=== PATIENT | female | born 1960 | race Caucasian/White ===

== ENCOUNTER 2016-12-06 20:07 | Emergency (ER) | payer OTHER ==
--- NOTE | 2016-12-06 20:52 | DIAGNOSTIC IMAGING REPORT ---
PROCEDURE: XR ANKLE 3 OR 4 VIEWS - RIGHT INDICATION: TRAUMA/INJURY TECHNIQUE: Four views. COMPARISON: None. FINDINGS: 7 mm a avulsion fracture adjacent to the superior aspect of the talus anteriorly suggestive of acute avulsion fracture. Plantar calcaneal spur. Normal ankle mortise. Soft tissue calcifications laterally. IMPRESSION: 1. Avulsion fracture of the superior aspect of the talus anteriorly, probably acute. Correlate clinically 2. Calcaneal spur 3. Results discussed with Esther Diaz, PAC
--- NOTE | 2016-12-06 21:01 | ED CLINICAL REPORT ---
Clinical Report - Physicians/Mid Levels [address] [address] [place] [address] 12/06/2016 20:10 Patient: JUSTINE SHEPHERD Time Seen: 20:15 Dec 06 2016. Arrived- By private vehicle. Historian- patient. HISTORY OF PRESENT ILLNESS Chief Complaint: Injury to the right ankle. The injury happened just prior to arrival. Fell. She sustained a direct blow. Occurred at home. Patient is experiencing moderate pain. Patient denies injury to the head or neck. (Patient fell down a wooden stair prior to arrival. Reports inverting her right ankle, and following with weight onto her left knee. Has been able to ambulate in the left lower extremity since incident. Patient). REVIEW OF SYSTEMS All systems otherwise negative, except as recorded above. PAST HISTORY The patient has not had a prior injury to the same area. Tetanus immunization status is up-to-date. Problems: Morbid obesity. Insomnia. Additional Surgeries: Bariatric Surgery. Breast Augmentation. Cholecystectomy. . Knee Surgery. Neck Surgery. Medications: Hydrocodone-Acetaminophen Oral. Ambien Oral. Allergies: No Known Drug Allergy. 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 No drug use. ADDITIONAL NOTES The nursing notes have been reviewed. PHYSICAL EXAM Vital Signs: 12/06/2016 20:30 BP: 147/70. HR: 71. RR: 16. O2 saturation: 100%. Temp: 97.9 F. Appearance: Alert. Head: Head atraumatic. CVS: Normal heart rate and rhythm. Decreased pulses. Respiratory: No respiratory distress. Breath sounds normal. Chest nontender. Skin: (left knee abrasion,). Extremities: Right posterior ankle. No tenderness or laceration. Right lateral ankle: tenderness and swelling. No ecchymosis or foreign body. Right anterior ankle: mild tenderness and swelling. No puncture wound. No deformity consistent with a fracture or dislocation. Right medial ankle. No tenderness or swelling. Base of the right 5th metatarsal. No tenderness or laceration. Right heel. No tenderness. ( left knee abarsion, no lac, mild swelling, full rom, non tender. no thigh/ tib/fib tendernss/ deformity of left aspect noted). Gait: Limping gait. Neuro, Vascular and Tendons: Vascular status intact. Motor intact. LABS, X-RAYS, AND EKG Rt Ankle X-ray: (IMPRESSION: 1. Avulsion fracture of the superior aspect of the talus anteriorly, probably acute. Correlate clinically 2. Calcaneal spur 3. Results discussed with Esther Diaz PAC Electronically Final signed by:Festus Davis MD 12/06/2016 8:52:15 PM). PROGRESS AND PROCEDURES PROCEDURES (R. ankle boot, ns intact post application). Course of Care: CARIN note: ambien/vicodin reviewed patient in the emergency department is very stable. Small left knee abrasion otherwise full range of motion of the left extremity. Full range of motion of the right extremity, her pain anteriorly and laterally of the ankle. Patient with no signs of laceration. No signs of ankle instability. Patient to follow up outpatient. NO injury to r.knee/ calcaneous. Mechanical trip/ fall down stair. 12/06/2016 21:17 BP: 125/72. HR: 70. RR: 18. O2 saturation: 98%. Patient is stable. Symptoms better. Patient/family counseled. Disposition: Discharged. Condition: good. CLINICAL IMPRESSION Single superficial abrasion to the left knee. Sprain of the tibiofibular ligament of the right ankle. Fracture of the right talus. Fall from stairs. INSTRUCTIONS Apply ice. Wear boot orthosis. Protect wound and keep wound area clean. Apply bacitracin twice daily. Elevate affected areas above chest level. (elevate and ICE your leg Follow up with podiatry/ ortho). Your Current Medications: CONTINUE TAKING THE FOLLOWING MEDICATIONS: Ambien Oral. Hydrocodone-Acetaminophen Oral. OTC Medications: Take OTC medications according to label instructions. Available over the counter. Acetaminophen (available over the counter): take according to label instructions. Motrin IB 200 mg (available over the counter): take 4 orally every 8 hours for 5 days, as needed for pain or swelling Follow-up with: [facility], , [address], [facility], [address] Follow up in five days. Call for the next available appointment. Follow-up with: Kemar Nunes DPM, Podiatry, , [facility], [address] [place] [address], [address], [place], [facility] Follow up. Call for the next available appointment. (Electronically signed by Lou Diaz P.A.-C 12/06/2016 21:26)
--- NOTE | 2016-12-06 21:01 | ED NURSING NOTES ---
Clinical Report - Nurses [facility] [place] [address] 12/06/2016 20:10 Patient: JUSTINE SHEPHERD TRIAGE Triage time 2019. Acuity: LEVEL 4. Chief Complaint: INJURY TO LEFT KNEE and RIGHT ANKLE. Alert. No acute distress. (anxious). --20:34 Felecia Parker 20:30 12/06/16. BP: 147/70. HR: 71. RR: 16. O2 saturation: 100%. Temp: 97.9 F. Pain level now 8/10. --20:34 Felecia Parker. Weight: 104.3 kg. Height/Length: 64 inches. BMI: 39.5. --20:30 Felecia Parker. Medications Ambien Oral. --20:31 Felecia Parekr Hydrocodone-Acetaminophen Oral. --20:44 Felecia Parker. Medication/allergy information source: the patient. --20:34 Felecia Parker. Allergies No Known Drug Allergy. --20:31 Felecia Parker. History Arrived by private vehicle. Historian: patient. Accompanied by family. This occurred just prior to arrival. Mechanism of injury: fell. ( Pt fell down 2 stairs, denies hitting head, c/o right ankle pain from rolling it, left knee pain with abrasion, left zarate pain with noted bruising). 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 SOCIAL HX: Never smoker. Regular alcohol use; consumes two glasses of wine daily. NUTRITIONAL RISK ASSESSMENT: The nutritional risk assessment revealed no deficiencies. FUNCTIONAL ASSESSMENT: Functional assessment: no impairments noted. LEARNING NEEDS ASSESSMENT: The learning needs assessment revealed no barriers. SKIN INTEGRITY ASSESSMENT: Skin integrity risk assessment completed. No skin integrity risk identified. --20:34 Felecia Parker. PROBLEMS: Morbid obesity. Insomnia. --20:32 Felecia Parker. ADDITIONAL SURGERIES: Bariatric Surgery. Breast Augmentation. Cholecystectomy. . Knee Surgery. Neck Surgery. --20:32 Felecia Parker. Interventions ID band on patient. To treatment room. --20:34 Felecia Parker. PHYSICAL ASSESSMENT To room via wheelchair. GENERAL / NEURO / PSYCH: Oriented X 4. Alert. Appears anxious and in distress. EXTREMITIES: Capillary refill is less than 2 seconds in the extremities. Extremity pulses are within normal limits. Pain with weight bearing. Right ankle: tenderness and swelling. Limited ROM secondary to pain. Left knee: tenderness, erythema and large and superficial abrasion. Limited ROM secondary to pain. Left leg: tenderness, swelling and ecchymosis of the anterior aspect of lower leg. Limited weight bearing secondary to pain. SKIN: Skin intact. Skin is warm and dry. --20:35 Felecia Parker. NURSING PROGRESS NOTES Cold pack applied. Reassurance given. Call light placed in reach. Bed placed in lowest position. Brakes of bed on. Patient ready for evaluation- chart flagged. --20:35 Felecia Parker 20:36 12/06/2016 Hydrocodone-APAP (Hydrocodone-Acetaminophen) PO 5/325 mg Tablets 1 tab given. Allergies verified, confirmed 5 rights and sedative warning given to the patient. --20:36 Felecia Parker ( CARIN report on pt, shows the Ambien but also fills fo Hydrocodone 7.5 with 540 qty, pt was asked about this, she sts she forgot, when asked why she takes them she sts for hip pain, when asked what is wrong with her hip she sts she used to get cortisone shots in it from a low back problem. This RN informed the pt and her spouse that it is important for her to disclose this rx, that it doesn't come across good when it is found only by e report, pt sts understanding, pt then medicated for pain). --20:46 Felecia Parker ( Wound care and splint on via assistant golf coach). --21:19 Felecia Parker. DISPOSITION / DISCHARGE Departure time: 2114. Condition at departure: unchanged and stable. No learning barriers present. Discharge instructions provided and reviewed with the patient and spouse. Reviewed medication(s). Patient and spouse verbalized understanding. Written instructions provided in Danish. The patient was discharged by the physician physician assistant surgery. She was discharged home and accompanied by spouse. She left the Emergency Department ambulatory and via private vehicle. Spouse driving. --21:18 Felecia Parker 21:17 12/06/16. BP: 125/72. HR: 70. RR: 18. O2 saturation: 98%. Pain level now 03/05. --21:18 Felecia Parker. Locked/Released at 12/06/2016 21:19 by Felecia Parker,
--- NOTE | 2016-12-06 21:01 | ED CLINICAL REPORT ---
Clinical Report - Physicians/Mid Levels [address] [address] [place] [address] 12/06/2016 20:10 Patient: JUSTINE SHEPHERD Time Seen: 20:15 Dec 06 2016. Arrived- By private vehicle. Historian- patient. HISTORY OF PRESENT ILLNESS Chief Complaint: Injury to the right ankle. The injury happened just prior to arrival. Fell. She sustained a direct blow. Occurred at home. Patient is experiencing moderate pain. Patient denies injury to the head or neck. (Patient fell down a wooden stair prior to arrival. Reports inverting her right ankle, and following with weight onto her left knee. Has been able to ambulate in the left lower extremity since incident. Patient). REVIEW OF SYSTEMS All systems otherwise negative, except as recorded above. PAST HISTORY The patient has not had a prior injury to the same area. Tetanus immunization status is up-to-date. Problems: Morbid obesity. Insomnia. Additional Surgeries: Bariatric Surgery. Breast Augmentation. Cholecystectomy. . Knee Surgery. Neck Surgery. Medications: Hydrocodone-Acetaminophen Oral. Ambien Oral. Allergies: No Known Drug Allergy. 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 No drug use. ADDITIONAL NOTES The nursing notes have been reviewed. PHYSICAL EXAM Vital Signs: 12/06/2016 20:30 BP: 147/70. HR: 71. RR: 16. O2 saturation: 100%. Temp: 97.9 F. Appearance: Alert. Head: Head atraumatic. CVS: Normal heart rate and rhythm. Decreased pulses. Respiratory: No respiratory distress. Breath sounds normal. Chest nontender. Skin: (left knee abrasion,). Extremities: Right posterior ankle. No tenderness or laceration. Right lateral ankle: tenderness and swelling. No ecchymosis or foreign body. Right anterior ankle: mild tenderness and swelling. No puncture wound. No deformity consistent with a fracture or dislocation. Right medial ankle. No tenderness or swelling. Base of the right 5th metatarsal. No tenderness or laceration. Right heel. No tenderness. ( left knee abarsion, no lac, mild swelling, full rom, non tender. no thigh/ tib/fib tendernss/ deformity of left aspect noted). Gait: Limping gait. Neuro, Vascular and Tendons: Vascular status intact. Motor intact. LABS, X-RAYS, AND EKG Rt Ankle X-ray: (IMPRESSION: 1. Avulsion fracture of the superior aspect of the talus anteriorly, probably acute. Correlate clinically 2. Calcaneal spur 3. Results discussed with Esther Diaz PAC Electronically Final signed by:Festus Davis MD 12/06/2016 8:52:15 PM). PROGRESS AND PROCEDURES PROCEDURES (R. ankle boot, ns intact post application). Course of Care: CARIN note: ambien/vicodin reviewed patient in the emergency department is very stable. Small left knee abrasion otherwise full range of motion of the left extremity. Full range of motion of the right extremity, her pain anteriorly and laterally of the ankle. Patient with no signs of laceration. No signs of ankle instability. Patient to follow up outpatient. NO injury to r.knee/ calcaneous. Mechanical trip/ fall down stair. 12/06/2016 21:17 BP: 125/72. HR: 70. RR: 18. O2 saturation: 98%. Patient is stable. Symptoms better. Patient/family counseled. Disposition: Discharged. Condition: good. CLINICAL IMPRESSION Single superficial abrasion to the left knee. Sprain of the tibiofibular ligament of the right ankle. Fracture of the right talus. Fall from stairs. INSTRUCTIONS Apply ice. Wear boot orthosis. Protect wound and keep wound area clean. Apply bacitracin twice daily. Elevate affected areas above chest level. (elevate and ICE your leg Follow up with podiatry/ ortho). Your Current Medications: CONTINUE TAKING THE FOLLOWING MEDICATIONS: Ambien Oral. Hydrocodone-Acetaminophen Oral. OTC Medications: Take OTC medications according to label instructions. Available over the counter. Acetaminophen (available over the counter): take according to label instructions. Motrin IB 200 mg (available over the counter): take 4 orally every 8 hours for 5 days, as needed for pain or swelling Follow-up with: [facility], , [address], [facility], [address] Follow up in five days. Call for the next available appointment. Follow-up with: Kemar Nunes DPM, Podiatry, , [facility], [address] [place] [address], [address], [place], [facility] Follow up. Call for the next available appointment. (Electronically signed by Lou Diaz P.A.-C 12/06/2016 21:26)
--- NOTE | 2016-12-06 21:01 | ED ORDER SUMMARY ---
..... Patient: JUSTINE SHEPHERD OrderSheet [facility] VisitID: [id number] [address] [place] [address] 56y, F Registration Date/Time: 12/06/2016 ORDER SHEET Weight: 104.3 kg Allergies: No Known Drug Allergy GENERAL ORDERS: Ankle 3 or 4V Right Urgent (20:28 12/06/2016 EKoroleva P.A.-C) (Ack 20:31 Alisha ER Drill Press Tender) (20:41 RFay) Splint (LE) (Right) (BIG BOOT to knee) (20:53 12/06/2016 EKoroleva P.A.-C) (21:18 EBonham) Wound Irrigation (LEFT KNEE, dressing with bacitracin, non adhesive) (20:53 12/06/2016 EKoroleva P.A.-C) (21:18 EBonham) MEDICATION ORDERS: Hydrocodone-APAP PO 5/325 mg (NOW, HIGH ALERT MEDICATION) (20:29 12/06/2016 EKoroleva P.A.-C) (20:36 EBonham) IV FLUIDS: ORDER SHEET NOTES: [Electronically signed by Felecia Parker (21:19 12/06/2016)] [Electronically signed by Lou Diaz P.A.-C (21:26 12/06/2016)] [Electronically locked/signed by Felecia Parker (21:19 12/06/2016)]
--- NOTE | 2016-12-06 21:01 | ED ORDER SUMMARY ---
..... Patient: JUSTINE SHEPHERD OrderSheet [facility] VisitID: [id number] [address] [place] [address] 56y, F Registration Date/Time: 12/06/2016 ORDER SHEET Weight: 104.3 kg Allergies: No Known Drug Allergy GENERAL ORDERS: Ankle 3 or 4V Right Urgent (20:28 12/06/2016 EKoroleva P.A.-C) (Ack 20:31 Alisha ER System Support Administrator) (20:41 RFay) Splint (LE) (Right) (BIG BOOT to knee) (20:53 12/06/2016 EKoroleva P.A.-C) (21:18 EBonham) Wound Irrigation (LEFT KNEE, dressing with bacitracin, non adhesive) (20:53 12/06/2016 EKoroleva P.A.-C) (21:18 EBonham) MEDICATION ORDERS: Hydrocodone-APAP PO 5/325 mg (NOW, HIGH ALERT MEDICATION) (20:29 12/06/2016 EKoroleva P.A.-C) (20:36 EBonham) IV FLUIDS: ORDER SHEET NOTES: [Electronically signed by Felecia Parker (21:19 12/06/2016)] [Electronically signed by Lou Diaz P.A.-C (21:26 12/06/2016)] [Electronically locked/signed by Felecia Parker (21:19 12/06/2016)]
--- NOTE | 2016-12-06 21:01 | ED NURSING NOTES ---
Clinical Report - Nurses [facility] [place] [address] 12/06/2016 20:10 Patient: JUSTINE SHEPHERD TRIAGE Triage time 2019. Acuity: LEVEL 4. Chief Complaint: INJURY TO LEFT KNEE and RIGHT ANKLE. Alert. No acute distress. (anxious). --20:34 Felecia Parker 20:30 12/06/16. BP: 147/70. HR: 71. RR: 16. O2 saturation: 100%. Temp: 97.9 F. Pain level now 8/10. --20:34 Felecia Parker. Weight: 104.3 kg. Height/Length: 64 inches. BMI: 39.5. --20:30 Felecia Parker. Medications Ambien Oral. --20:31 Felecia Parker Hydrocodone-Acetaminophen Oral. --20:44 Felecia Parker. Medication/allergy information source: the patient. --20:34 Felecia Parker. Allergies No Known Drug Allergy. --20:31 Felecia Parker. History Arrived by private vehicle. Historian: patient. Accompanied by family. This occurred just prior to arrival. Mechanism of injury: fell. ( Pt fell down 2 stairs, denies hitting head, c/o right ankle pain from rolling it, left knee pain with abrasion, left zarate pain with noted bruising). 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 SOCIAL HX: Never smoker. Regular alcohol use; consumes two glasses of wine daily. NUTRITIONAL RISK ASSESSMENT: The nutritional risk assessment revealed no deficiencies. FUNCTIONAL ASSESSMENT: Functional assessment: no impairments noted. LEARNING NEEDS ASSESSMENT: The learning needs assessment revealed no barriers. SKIN INTEGRITY ASSESSMENT: Skin integrity risk assessment completed. No skin integrity risk identified. --20:34 Felecia Parker. PROBLEMS: Morbid obesity. Insomnia. --20:32 Felecia Parker. ADDITIONAL SURGERIES: Bariatric Surgery. Breast Augmentation. Cholecystectomy. . Knee Surgery. Neck Surgery. --20:32 Felecia Parker. Interventions ID band on patient. To treatment room. --20:34 Felecia Parker. PHYSICAL ASSESSMENT To room via wheelchair. GENERAL / NEURO / PSYCH: Oriented X 4. Alert. Appears anxious and in distress. EXTREMITIES: Capillary refill is less than 2 seconds in the extremities. Extremity pulses are within normal limits. Pain with weight bearing. Right ankle: tenderness and swelling. Limited ROM secondary to pain. Left knee: tenderness, erythema and large and superficial abrasion. Limited ROM secondary to pain. Left leg: tenderness, swelling and ecchymosis of the anterior aspect of lower leg. Limited weight bearing secondary to pain. SKIN: Skin intact. Skin is warm and dry. --20:35 Felecia Parker. NURSING PROGRESS NOTES Cold pack applied. Reassurance given. Call light placed in reach. Bed placed in lowest position. Brakes of bed on. Patient ready for evaluation- chart flagged. --20:35 Felecia Parker 20:36 12/06/2016 Hydrocodone-APAP (Hydrocodone-Acetaminophen) PO 5/325 mg Tablets 1 tab given. Allergies verified, confirmed 5 rights and sedative warning given to the patient. --20:36 Felecia Parker ( CARIN report on pt, shows the Ambien but also fills fo Hydrocodone 7.5 with 540 qty, pt was asked about this, she sts she forgot, when asked why she takes them she sts for hip pain, when asked what is wrong with her hip she sts she used to get cortisone shots in it from a low back problem. This RN informed the pt and her spouse that it is important for her to disclose this rx, that it doesn't come across good when it is found only by e report, pt sts understanding, pt then medicated for pain). --20:46 Felecia Parker ( Wound care and splint on via curtain hemmer automatic). --21:19 Felecia Parker. DISPOSITION / DISCHARGE Departure time: 2114. Condition at departure: unchanged and stable. No learning barriers present. Discharge instructions provided and reviewed with the patient and spouse. Reviewed medication(s). Patient and spouse verbalized understanding. Written instructions provided in Kyrgyz. The patient was discharged by the physician psychologist research assistant. She was discharged home and accompanied by spouse. She left the Emergency Department ambulatory and via private vehicle. Spouse driving. --21:18 Felecia Parker 21:17 12/06/16. BP: 125/72. HR: 70. RR: 18. O2 saturation: 98%. Pain level now 03/05. --21:18 Felecia Parker. Locked/Released at 12/06/2016 21:19 by Felecia Parker,
--- NOTE | 2016-12-06 21:26 | ED DISCHARGE INSTRUCTIONS ---
Patient: JUSTINE SHEPHERD General Instructions [facility] VisitID: [id number] [address] [place] [address] 56y, F Registration Date/Time: 12/06/2016 Single superficial abrasion to the left knee. Sprain of the tibiofibular ligament of the right ankle. Fracture of the right talus. Fall from stairs. INSTRUCTIONS Apply ice. Wear boot orthosis. Protect wound and keep wound area clean. Apply bacitracin twice daily. Elevate affected areas above chest level. (elevate and ICE your leg Follow up with podiatry/ ortho). Your Current Medications: CONTINUE TAKING THE FOLLOWING MEDICATIONS: Ambien Oral. Hydrocodone-Acetaminophen Oral. OTC Medications: Take OTC medications according to label instructions. Available over the counter. Acetaminophen (available over the counter): take according to label instructions. Motrin IB 200 mg (available over the counter): take 4 orally every 8 hours for 5 days, as needed for pain or swelling Follow-up with: [facility], , [address], [place] [address] Follow up in five days. Call for the next available appointment. Follow-up with: Kemar Nunes DPM, Podiatry, , [facility], [address] [place] [address], [address], [place] [address] Follow up. Call for the next available appointment. ADDITIONAL INFORMATION Mechanical Fall You have had a fall today. It appears that the cause is mechanical. That means that you slipped, tripped or lost your balance. If your fall had been due to fainting or a seizure, further tests would be required. Home Care: Rest today and resume your normal activities when you are feeling back to normal. If you were injured during the fall, follow the advice from your doctor regarding care of your injury. You may use acetaminophen (Tylenol) or ibuprofen (Motrin, Advil) to control pain, unless another pain medicine was prescribed. [NOTE: If you have chronic liver or kidney disease or ever had a stomach ulcer or GI bleeding, talk with your doctor before using these medicines.] Fall Prevention: Was there anything that caused your fall that can be fixed, removed, or replaced? Make your home safe by keeping walkways clear of objects you may trip over. Use non-slip pads under rugs. Do not walk in poorly lit areas. Do not stand on chairs or wobbly ladders. Use caution when reaching overhead or looking upward. This position can cause a loss of balance. Be sure your shoes fit properly, have non-slip bottoms and are in good condition. Be cautious when going up and down curbs, and walking on uneven sidewalks. If your balance is poor, consider using a cane or walker. Stay as active as you can. Balance, flexibility, strength, and endurance all come from exercise. They all play a role in preventing falls. Follow Up with your doctor or as advised by our staff. Get Prompt Medical Attention if any of the following occur: Repeated mechanical falls, or unexplained falls Dizziness, fainting or seizure Severe headache Chest pain or shortness of breath Palpitations (very rapid or very slow or irregular heartbeat) Blood in vomit, stools (black or red color) Weakness of an arm or leg or one side of the face Difficulty with speech or vision Abrasions Abrasions are skin scrapes. Their treatment depends on how large and deep the abrasion is. Home Care: If you were given a bandage, change it once a day. If your bandage sticks to the wound, soak it in warm water until it loosens. Wash the area with soap and water to remove all the cream/ointment. You may do this in a sink, under a tub faucet or shower. Rinse off the soap and pat dry with a clean towel. Reapply cream/ointment according to your doctor's instructions. This will prevent infection and help prevent the bandage from sticking. Cover the wound with a fresh non-stick bandage (Telfa). Repeat steps 1 to 4 daily, or as directed by your doctor. If the bandage becomes wet or dirty, change it as soon as possible. You may use acetaminophen (Tylenol) or ibuprofen (Motrin, Advil) to control pain, unless another pain medicine was prescribed. [ NOTE : If you have chronic liver or kidney disease or ever had a stomach ulcer or GI bleeding, talk with your doctor before using these medicines.] Do not use ibuprofen in children under six months of age. Follow Up with your physician or this facility as directed by our staff. Most skin wounds heal within ten days. However, an infection may occur despite proper treatment. Therefore, look for the early signs of infection listed below. Get Prompt Medical Attention if any of the following occur: Increasing pain in the wound Increasing redness or swelling Pus coming from the wound Fever of 100.4F (38C) or higher, or as directed by your healthcare provider Sprain, Ankle,With X-Ray A sprain is an injury to the ligaments or capsule that holds a joint together. There are no broken bones. Most sprains take from four to six weeks to heal. If the ligament is completely torn (severe sprain), it can take several months to recover. Mild to moderate sprains may be treated with an elastic wrap or an in-shoe splint to provide support and prevent re-injury. A mild sprain may not require any additional support. A severe sprain may require surgery to repair. Home care The following guidelines will help you care for your injury at home: Stay off the injured leg as much as possible until you can walk on it without pain. If you have a lot of pain with walking, crutches or a walker may be prescribed. (These can be rented or purchased at many pharmacies and surgical or orthopedic supply stores). Follow your doctor's advice regarding when to begin bearing weight on that leg. Keep your leg elevated to reduce pain and swelling. When sleeping, place a pillow under the injured leg. When sitting, support the injured leg so it is level with your waist. This is very important during the first 48 hours. Apply an ice pack (ice cubes in a plastic bag, wrapped in a towel) over the injured area for 20 minutes every 12 hours the first day. You can place the ice pack directly over the splint/cast. If you were given a boot, open it to apply the ice pack. Continue with ice packs 34 times a day for the next two days, then as needed for the relief of pain and swelling. You may use acetaminophen or ibuprofen to control pain, unless another pain medicine was prescribed. If you have chronic liver or kidney disease or ever had a stomach ulcer or GI bleeding, talk with your doctor before using these medicines. You may return to sports after healing, when you can run without pain. A sprained ankle is at risk for re-injury during the first six weeks. During that time, protect your ankle with an in-shoe splint that prevents tilting of your ankle from side to side. This is very important if you do active work or play sports during that time. Follow-up care Any X-rays you had today dont show any broken bones, breaks, or fractures. Sometimes fractures dont show up on the first X-ray. Bruises and sprains can sometimes hurt as much as a fracture. These injuries can take time to heal completely. If your symptoms dont improve or they get worse, talk with your doctor. You may need a repeat X-ray. When to seek medical care Get prompt medical attention if any of the following occur: The plaster cast or splint gets wet or soft The fiberglass cast or splint gets wet and does not dry for 24 hours Pain or swelling increases, or redness appears Toes become cold, blue, numb or tingly Re-injure your ankle Fracture:Foot You have a fracture (break) of one of the bones in your foot. This will cause pain, swelling and sometimes bruising. It will take about 4-6 weeks to heal. A foot fracture may be treated with a special shoe, splint, cast or boot. Home Care: You may be given a splint, cast, shoe or boot to prevent movement at the injury. Unless you were told otherwise, use crutches or a walker and do not bear weight on the injured foot until cleared by your doctor to do so. (Crutches and walkers can be rented at many pharmacies and surgical/orthopedic supply stores). Do not put weight on a splint; it will break. Keep your leg elevated to reduce pain and swelling. When sleeping, place a pillow under the injured leg. When sitting, support the injured leg so it is level with your waist. This is very important during the first 48 hours. Apply an ice pack (ice cubes in a plastic bag, wrapped in a towel) over the injured area for 20 minutes every 1-2 hours the first day. You can place the ice pack directly over the splint/cast. Unless told otherwise, you can open the boot or shoe to apply ice. Continue with ice packs 3-4 times a day for the next two days, then as needed for the relief of pain and swelling. Keep the splint/cast/boot/shoe dry. When bathing, protect it with a large plastic bag, rubber-banded at the top end. If a fiberglass splint/cast or boot gets wet, you can dry it with a hair-dryer. Unless told otherwise, you can remove a boot or shoe to bathe. You may use acetaminophen (Tylenol) or ibuprofen (Motrin, Advil) to control pain, unless another pain medicine was prescribed. [NOTE: If you have chronic liver or kidney disease or ever had a stomach ulcer or GI bleeding, talk with your doctor before using these medicines.] Follow Up with your doctor within one week, or as advised by our staff, to be sure the bone is healing properly. If you were given a splint, it may be changed to a cast or boot at your follow-up visit.[NOTE: A radiologist will review any X-rays that were taken. We will notify you of any new findings that may affect your care.] Get Prompt Medical Attention if any of the following occur: The plaster cast or splint becomes wet or soft The fiberglass cast or splint remains wet for more than 24 hours Increased tightness or pain under the cast or splint Toes become swollen, cold, blue, numb or tingly Aircast Sp-Walker Boot Traditional splints and casts for the foot and ankle protect the injury by preventing movement at the joints. However, many injuries heal better and faster if the injured joint can be moved, while protected at the same time. This is the reason for using an Aircast Walker boot. This is a short boot that provides support and protection to the foot and ankle while allowing you to walk. It contains padded air cells that provide compression and help circulation. It is used for both foot and ankle injuries - both sprains and minor fractures. Ankle and foot sprains can take 4-6 weeks to heal. Persons with severe injuries or over age 60 may require more time to heal. During that time, you are prone to re-injury by suddenly twisting your foot or ankle again while the ligaments are still weak. When treating a sprain, the AirCast Walker boot should be worn whenever walking for at least four weeks, or as long as you continue to have ankle pain. Talk to your doctor for specific advice about the treatment of your condition. Air-Stirrup and SP-Walker are trademarks of [employer]. For more information about their products, see www.[employer]. Ibuprofen Oral tablet What is this medicine? IBUPROFEN (eye BYOO proe fen) is a non-steroidal anti-inflammatory drug (NSAID). It is used for dental pain, fever, headaches or migraines, osteoarthritis, rheumatoid arthritis, or painful monthly periods. It can also relieve minor aches and pains caused by a cold, flu, or sore throat. How should I use this medicine? Take this medicine by mouth with a glass of water. Follow the directions on the prescription label. Take this medicine with food if your stomach gets upset. Try to not lie down for at least 10 minutes after you take the medicine. Take your medicine at regular intervals. Do not take your medicine more often than directed. A special MedGuide will be given to you by the pharmacist with each prescription and refill. Be sure to read this information carefully each time. Talk to your laborer [facility] regarding the use of this medicine in children. Special care may be needed. What side effects may I notice from receiving this medicine? Side effects that you should report to your doctor or health healthcare interpreter as soon as possible: allergic reactions like skin rash, itching or hives, swelling of the face, lips, or tongue black or bloody stools, blood in the urine or in vomit breathing problems changes in vision chest pain general ill feeling or flu-like symptoms nausea or vomiting redness, blistering, peeling or loosening of the skin, including inside the mouth slurred speech or weakness on one side of the body stomach pain unexplained weight gain or swelling unusually weak or tired yellowing of eyes or skin Side effects that usually do not require medical attention (report to your doctor or health healthcare interpreter if they continue or are bothersome): constipation or diarrhea dizziness gas or heartburn stomach upset What may interact with this medicine? Do not take this medicine with any of the following medications: cidofovir ketorolac methotrexate pemetrexed This medicine may also interact with the following medications: alcohol aspirin diuretics lithium other drugs for inflammation like prednisone warfarin What if I miss a dose? If you miss a dose, take it as soon as you can. If it is almost time for your next dose, take only that dose. Do not take double or extra doses. Where should I keep my medicine? Keep out of the reach of children. Store at room temperature between 15 and 30 degrees C (59 and 86 degrees F). Keep container tightly closed. Throw away any unused medicine after the expiration date. What should I tell my health care provider before I take this medicine? They need to know if you have any of these conditions: asthma cigarette smoker drink more than 3 alcohol containing drinks a day heart disease or circulation problems such as heart failure or leg edema (fluid retention) high blood pressure kidney disease liver disease stomach bleeding or ulcers an unusual or allergic reaction to ibuprofen, aspirin, other NSAIDS, other medicines, foods, dyes, or preservatives or trying to get breast-feeding What should I watch for while using this medicine? Tell your doctor or healthcare professional if your symptoms do not start to get better or if they get worse. This medicine does not prevent heart attack or stroke. In fact, this medicine may increase the chance of a heart attack or stroke. The chance may increase with longer use of this medicine and in people who have heart disease. If you take aspirin to prevent heart attack or stroke, talk with your doctor or health healthcare interpreter. Do not take other medicines that contain aspirin, ibuprofen, or naproxen with this medicine. Side effects such as stomach upset, nausea, or ulcers may be more likely to occur. Many medicines available without a prescription should not be taken with this medicine. This medicine can cause ulcers and bleeding in the stomach and intestines at any time during treatment. Ulcers and bleeding can happen without warning symptoms and can cause . To reduce your risk, do not smoke cigarettes or drink alcohol while you are taking this medicine. You may get drowsy or dizzy. Do not drive, use machinery, or do anything that needs mental alertness until you know how this medicine affects you. Do not stand or sit up quickly, especially if you are an older patient. This reduces the risk of dizzy or fainting spells. This medicine can cause you to bleed more easily. Try to avoid damage to your teeth and gums when you brush or floss your teeth. You have been given the following additional information: Fall, Mechanical Abrasion Sprain, Ankle, With X-Ray Fracture, Foot Walker Boot Ibuprofen Oral tablet (Electronically signed by Lou Diaz P.A.-C 12/06/2016 21:26)
--- NOTE | 2016-12-06 21:26 | ED MAR SUMMARY ---
..... Medication Administration Record [facility] [address] [place] [address] Patient: JUSTINE SHEPHERD Visit ID: [id number] 56y, F Weight: 104.3 kg Height/Length: 64 in BMI: 39.5 ALLERGIES: No Known Drug Allergy Given 20:36 12/06/2016 Felecia Parker, Medication Administered: HYDROCODONE-APAP [PO] (HYDROCODONE-ACETAMINOPHEN), Dose: 1 tab 5/325 mg Tablets PO. Medication Ordered: Hydrocodone-APAP PO 5/325 mg (NOW, HIGH ALERT MEDICATION).
--- NOTE | 2016-12-06 21:26 | ED MED RECONCILIATION SUMMARY ---
Patient: JUSTINE SHEPHERD Medication Reconciliation Report [facility] VisitID: [id number] [address] [place] [address] 56y, F Registration Date/Time: 12/06/2016 Weight: 104.3 kg Height/Length: 64 in. BMI: 39.5 ALLERGIES: No Known Drug Allergy The patient's Home Medications are listed below: CONTINUE TAKING THE FOLLOWING MEDICATIONS: Ambien Oral Hydrocodone-Acetaminophen Oral The source(s) of the original Home Medication information: patient The following Medications were given to the patient in the Emergency Department: Hydrocodone-APAP [PO] PO 1 tab, administered: 12/06/2016 8:36:00 PM The following Medications were prescribed to the patient: Take OTC medications according to label instructions. Available over the counter. -- Lou Diaz, P.A.-C Acetaminophen (available over the counter): take according to label instructions. -- Lou Diaz, P.A.-C Motrin IB 200 mg (available over the counter): take 4 orally every 8 hours for 5 days, as needed for pain or swelling -- Lou Diaz, P.A.-C
--- NOTE | 2016-12-06 21:26 | ED MAR SUMMARY ---
..... Medication Administration Record [facility] [address] [place] [address] Patient: JUSTINE SHEPHERD Visit ID: [id number] 56y, F Weight: 104.3 kg Height/Length: 64 in BMI: 39.5 ALLERGIES: No Known Drug Allergy Given 20:36 12/06/2016 Felecia Parker, Medication Administered: HYDROCODONE-APAP [PO] (HYDROCODONE-ACETAMINOPHEN), Dose: 1 tab 5/325 mg Tablets PO. Medication Ordered: Hydrocodone-APAP PO 5/325 mg (NOW, HIGH ALERT MEDICATION).
--- NOTE | 2016-12-06 21:26 | ED MED RECONCILIATION SUMMARY ---
Patient: JUSTINE SHEPHERD Medication Reconciliation Report VisitID: [id number] [address] [place] [address] 56y, F Registration Date/Time: 12/06/2016 Weight: 104.3 kg Height/Length: 64 in. BMI: 39.5 ALLERGIES: No Known Drug Allergy The patient's Home Medications are listed below: CONTINUE TAKING THE FOLLOWING MEDICATIONS: Ambien Oral Hydrocodone-Acetaminophen Oral The source(s) of the original Home Medication information: patient The following Medications were given to the patient in the Emergency Department: Hydrocodone-APAP [PO] PO 1 tab, administered: 12/06/2016 8:36:00 PM The following Medications were prescribed to the patient: Take OTC medications according to label instructions. Available over the counter. -- Lou Diaz, P.A.-C Acetaminophen (available over the counter): take according to label instructions. -- Lou Diaz, P.A.-C Motrin IB 200 mg (available over the counter): take 4 orally every 8 hours for 5 days, as needed for pain or swelling -- Lou Diaz, P.A.-C
== END 2016-12-06 21:15 | disposition home or self-care (01) ==
LOC: ED SRH 20:07
DX: S92.101A Unspecified fracture of right talus, initial encounter for closed fracture (principal); S93.431A Sprain of tibiofibular ligament of right ankle, initial encounter; S80.212A Abrasion, left knee, initial encounter; W10.9XXA Fall (on) (from) unspecified stairs and steps, initial encounter; Y93.9 Activity, unspecified; Y99.9 Unspecified external cause status; Y92.009 Unspecified place in unspecified non-institutional (private) residence as the place of occurrence of the external cause; Z79.891 Long term (current) use of opiate analgesic; Z79.899 Other long term (current) drug therapy